=== PATIENT | male | born 1980 | race Caucasian/White ===

== ENCOUNTER 2017-11-04 04:22 | Emergency (ER) | payer OTHER ==
[~2017-11-04] VITALS: Ht 190.5 cm; Wt 97.7 kg
[~2017-11-04 04:22] MED LIST: Z.0.NO CURRENT MEDS
[2017-11-04 04:27] VITALS: BP 127/75; PULSE 115; RESP 18; TEMP 101.1; O2SAT 97
[2017-11-04] MEDS ORDERED: SODIUM CHLOR 0.9% 1000 ML INJ 1,000 ML IV ONE (04:44)
[2017-11-04] MEDS ORDERED: ACETAMINOPHEN 325 MG TAB PO ONE (04:45)
[2017-11-04] MEDS ORDERED: RESP: ALBUTEROL 2.5 MG/IPRATROPIUM 0.5 MG NEB (SCH) INH ONE (04:45)
--- NOTE | 2017-11-04 04:47 | PD ---
HPI Chief Complaint: Respiratory Symptoms Time Seen by Provider: 04:44 Travel History International Travel<30 days: No Contact w/Intl Traveler<30days: No Traveled to known affect area: No History of Present Illness HPI 37-year-old male patient with history of recent diagnosis of bronchitis currently on Zithromax and steroids, here because he is having ongoing cough, shortness of breath, chills, and now fevers. He states that his symptoms started about 5 days ago. His son has had similar symptoms and had been diagnosed with bronchitis also. Patient states that he is now having some nausea and vomiting as well. Modifying Factors: None Associated Signs & Symptoms: Cough, shortness of breath, chills, fevers Risk Factors: Sick contact PFSH Past Medical History Diminished Hearing: No Immunizations Current: Yes Past Surgical History Oral Surgery: Yes (FACIAL TRAUMA) Other Surgery: Yes (PLATE PLACED LEFT CHEEK) Social History Alcohol Use: Yes (OCCASIONAL) Tobacco Use: No Substance Use: No Allergies-Medications (Allergen,Severity, Reaction): Coded Allergies: No Known Allergies (Verified Adverse Reaction, Unknown, 11/04/17) Reported Meds & Prescriptions Reported Meds & Active Scripts Active Reported Prednisone 20 Mg Tab 20 Mg PO DAILY Zithromax Z-Cullen (Azithromycin) 250 Mg Dspk 250 Mg PO DIRECTED 500 MG (2 tabs) day 1, then 1 tab days 2-5. Review of Systems Except as stated in HPI: all other systems reviewed are Neg Physical Exam Narrative GENERAL: Well-developed middle-age male patient currently in mild distress. Awake and oriented 3. SKIN: Focused skin assessment warm/dry. HEAD: Atraumatic. Normocephalic. EYES: Pupils equal and round. No scleral icterus. No injection or drainage. ENT: No nasal bleeding or discharge. Mucous membranes pink and moist. NECK: Trachea midline. No JVD. Supple. CARDIOVASCULAR: Regular rate and rhythm. No murmur appreciated. RESPIRATORY: No accessory muscle use. Mild wheezing bilaterally. Breath sounds equal bilaterally. GASTROINTESTINAL: Abdomen soft, non-tender, nondistended. Hepatic and splenic margins not palpable. MUSCULOSKELETAL: No obvious deformities. No clubbing. No cyanosis. No edema. NEUROLOGICAL: Awake and alert. No obvious cranial nerve deficits. Motor grossly within normal limits. Normal speech. PSYCHIATRIC: Appropriate mood and affect; insight and judgment normal. Data Data Last Documented VS Vital Signs Date Time Temp Pulse Resp B/P (MAP) Pulse Ox O2 Delivery O2 Flow Rate FiO2 11/04/17 04:57 99 Nasal Cannula 8.00 21 11/04/17 04:27 101.1 115 18 127/75 (92) Orders Orders Sepsis Workup Initiated (11/04/17 ) Complete Blood Count With Diff (11/04/17 04:44) Comprehensive Metabolic Panel (11/04/17 04:44) Lactic Acid Sepsis Protocol (11/04/17 04:44) Influenzae A/B Antigen (11/04/17 04:44) Blood Culture (11/04/17 04:44) Chest, Single Ap (11/04/17 04:44) Blood Glucose (11/04/17 04:44) Ecg Monitoring (11/04/17 04:44) Iv Access Insert/Monitor (11/04/17 04:44) Oximetry (11/04/17 04:44) Oxygen Administration (11/04/17 04:44) Acetaminophen (Tylenol) (11/04/17 04:45) Sodium Chlor 0.9% 1000 Ml Inj (Ns 1000 M (11/04/17 04:44) Albuterol-Ipratropium Neb (Duoneb Neb) (11/04/17 04:45) Potassium Chloride Eff (K-Lyte Cl Eff) (11/04/17 05:45) Labs Laboratory Tests Test 11/04/17 04:45 11/04/17 04:50 White Blood Count 5.7 TH/MM3 Red Blood Count 4.52 MIL/MM3 Hemoglobin 13.2 GM/DL Hematocrit 39.0 % Mean Corpuscular Volume 86.2 FL Mean Corpuscular Hemoglobin 29.3 PG Mean Corpuscular Hemoglobin Concent 34.0 % Red Cell Distribution Width 12.0 % Platelet Count 174 TH/MM3 Mean Platelet Volume 7.8 FL Neutrophils (%) (Auto) 79.3 % Lymphocytes (%) (Auto) 11.4 % Monocytes (%) (Auto) 7.9 % Eosinophils (%) (Auto) 0.8 % Basophils (%) (Auto) 0.6 % Neutrophils # (Auto) 4.5 TH/MM3 Lymphocytes # (Auto) 0.7 TH/MM3 Monocytes # (Auto) 0.5 TH/MM3 Eosinophils # (Auto) 0.0 TH/MM3 Basophils # (Auto) 0.0 TH/MM3 CBC Comment DIFF FINAL Differential Comment Blood Urea Nitrogen 11 MG/DL Creatinine 1.20 MG/DL Random Glucose 112 MG/DL Total Protein 6.7 GM/DL Albumin 3.4 GM/DL Calcium Level 8.2 MG/DL Alkaline Phosphatase 47 U/L Aspartate Amino Transf (AST/SGOT) 33 U/L Alanine Aminotransferase (ALT/SGPT) 34 U/L Total Bilirubin 0.3 MG/DL Sodium Level 139 MEQ/L Potassium Level 3.0 MEQ/L Chloride Level 105 MEQ/L Carbon Dioxide Level 27.8 MEQ/L Anion Gap 6 MEQ/L Estimat Glomerular Filtration Rate 68 ML/MIN Lactic Acid Level 1.9 mmol/L [facility] Medical Decision Making Medical Screen Exam Complete: Yes Emergency Medical Condition: Yes Medical Record Reviewed: Yes Interpretation(s) Laboratory Tests Test 11/04/17 04:45 11/04/17 04:50 Neutrophils (%) (Auto) 79.3 % (16.0-70.0) Lymphocytes # (Auto) 0.7 TH/MM3 (1.0-4.8) Random Glucose 112 MG/DL (74-106) Calcium Level 8.2 MG/DL (8.5-10.1) Potassium Level 3.0 MEQ/L (3.5-5.1) Estimat Glomerular Filtration Rate 68 ML/MIN (>89) Differential Diagnosis Bronchitis versus influenza versus URI versus pneumonia versus asthma Narrative Course Patient is positive for influenza A. He was given IV fluids and nausea medications in the ER. His lab work does show low potassium and p.o. potassium was also given. At this point, my plan would be to release him with follow-up to primary care doctor as needed. Return for any worsening in symptoms. The plan was discussed with him and he states understanding. He has had symptoms for 5 days and is well beyond the Tamiflu treatment range. Diagnosis Primary Impression: Influenza A Med/Other Pt SpecificInfo: Prescription(s) given Scripts Potassium Chloride ER (Potassium Chloride ER) 20 Meq Tab 20 MEQ PO BID for Electrolyte Replacement, #6 TAB 0 Refills Prov: Robel Crowe MD 11/04/17 Ondansetron Odt (Zofran Odt) 4 Mg Tab 4 MG SL Q6HR Y for Nausea/Vomiting, #7 TAB 0 Refills Prov: Soonroney,Rewadee MD 11/04/17 Disposition: 01 DISCHARGE HOME Condition: Stable Robel Crowe MD November 04, 2017 04:47
[2017-11-04 05:25] LABS: CHLORIDE 105 MEQ/L (98-107); SODIUM (NA) 139 MEQ/L (136-145)
--- NOTE | 2017-11-04 05:26 | RADRPT ---
EXAM DATE/TIME: 11/04/2017 05:05 [place] COMPARISON: No previous studies available for comparison. INDICATIONS : Cough, shortness of breath for 2 days MEDICAL HISTORY : None. SURGICAL HISTORY : None. ENCOUNTER: Initial ACUITY: 2 days PAIN SCORE: 5/10 LOCATION: Bilateral chest FINDINGS: A single view of the chest demonstrates the lungs to be symmetrically aerated without evidence of mas s, infiltrate or effusion. The cardiomediastinal contours are unremarkable. Osseous structures are intact. CONCLUSION: No acute disease. Solomon Zavala MD on November 04, 2017 at 5:24 Board Certified Radiologist. This report was verified electronically.
[2017-11-04 05:28] LABS: AUTOMATED NEUTROPHIL # 4.5 TH/MM3 (1.8-7.7); BASOPHIL % 0.6 % (0.0-2.0); EOSINOPHIL % 0.8 % (0.0-4.0); HEMOGLOBIN 13.2 GM/DL (13.0-17.0); LYMPH % 11.4 % (9.0-44.0); LYMPHOCYTE # 0.7 TH/MM3 (1.0-4.8); MEAN CELL VOLUME 86.2 FL (80.0-100.0); MEAN CORPUSCULAR HEMOGLOBIN 29.3 PG (27.0-34.0); MEAN PLATELET VOLUME 7.8 FL (7.0-11.0); MONO % 7.9 % (0.0-8.0); MONOCYTE # 0.5 TH/MM3 (0-0.9); NEUT % 79.3 % (16.0-70.0); PLATELET COUNT 174 TH/MM3 (150-450); RED BLOOD COUNT 4.52 MIL/MM3 (4.50-5.90); WHITE BLOOD COUNT 5.7 TH/MM3 (4.0-11.0)
[2017-11-04] MEDS ORDERED: PRED20 PO (05:28)
[2017-11-04] MEDS ORDERED: ZITHTAB PO (05:28)
[2017-11-04 05:30] LABS: CALCIUM 8.2 MG/DL (8.5-10.1)
[2017-11-04 05:31] LABS: ALBUMIN 3.4 GM/DL (3.4-5.0); BICARBONATE 27.8 MEQ/L (21.0-32.0); BLOOD UREA NITROGEN 11 MG/DL (7-18); GLUCOSE,RANDOM 112 MG/DL (74-106)
[2017-11-04 05:34] LABS: ALT (GPT) 34 U/L (12-78); AST (GOT) 33 U/L (15-37); GLOMERULAR FILTRATION RATE 68 ML/MIN (>89)
[2017-11-04 05:35] LABS: TOTAL BILIRUBIN ADULT 0.3 MG/DL (0.2-1.0); TOTAL PROTEIN 6.7 GM/DL (6.4-8.2)
[2017-11-04 05:37] LABS: ALKALINE PHOSPHATASE 47 U/L (45-117)
[2017-11-04] MEDS ORDERED: POTASSIUM CHLORIDE 25 MEQ EFFERVESCENT TAB PO ONE (05:45)
[2017-11-04 05:49] VITALS: BP 119/61; PULSE 110; TEMP 101.3; O2SAT 97
[2017-11-04] MEDS ORDERED: ZOFR4TAB3 SL (05:50)
[2017-11-04] MEDS ORDERED: POTA-163 PO (05:50)
== END 2017-11-04 06:08 | disposition home or self-care (01) ==
LOC: PHED 04:22
DX: J10.1 Influenza due to other identified influenza virus with other respiratory manifestations (principal)
CPT/HCPCS: 71045; 80053; 83605; 85025; 87040; 87804; 94664; 96360; 99284; J7030